=== PATIENT | female | born 1960 | race Caucasian/White ===

== ENCOUNTER 2021-07-05 11:39 | Inpatient (IN) | payer OTHER ==
[~2021-07-05] VITALS: Ht 165.1 cm; Wt 111.8 kg
--- NOTE | ~2021-07-05 | EMS ---
[facility] [address] [place] [place] [address] EMS Patient Care Report Name: PRABHAKAR SOTELO Room: [place] [address] ADM IN .#: [id number] Admission: 07/05/21 Attend Phys: Lux Leahy Discharge: Date of : 58 Report #: [id number] THIS REPORT FOR: //name// Report Transmitted: 07/05/2021 11:45 EMS Care Summary RONI RIDER Incident [id number] @ 07/05/2021 11:08 Incident Location [facility] [place] [address] Patient PRABHAKAR SOTELO Female, 61 Years 1960 Patient Address [address] [place] [address] Patient History Chronic Obstructive Pulmonary Disease (COPD),Hypertension (HTN), Patient Allergies No known allergies, Patient Medications Atorvastatin, Amlodipine, Potassium Chloride / Sodium Chloride, Chief Complaint Shortness of Breath Disposition Transported No Lights/[place] Reason Breathing Problem Transported To [facility] Narrative 61 Y O F C/O SHORTNESS OF BREATH AND A COUGH THAT STARTED ON SUNDAY AND WAS COUGHING UP GREEN STUFF. DOCTOR AT CLINIC STATED SHE IS COVID POSITIVE, WHEN SHE CAME IN SHE WAS SATTING AT 82 AND THEY GAVE HER AN A AND A TREATMENT AND IT GOT IT UP TO 88. PT STATED SHE DID NOT FEEL IF IT HELPED OR NOT. PT STATED SHE ALSO HAD A HEADACHE. PT DENIED PAIN TO HEAD, NECK, BACK, CHEST, ABD, PELVIS, [facility] [address] [place] [address] EMS Patient Care Report Name: PRABHAKAR SOTELO Room: [place] [address] ADM IN .R.#: [id number] Admission: 07/05/21 Attend Phys: Lux Leahy Discharge: Date of : 58 Report #: [id number] EXT AND LOSS OF CONSCIOUSNESS. PT FOUND SITTING IN CHAIR A AND O X4, ABCS IN TACT HEENT GCS 15, PUPILS JUANITA, NO JVD, IN LINE TRAC CHEST = RISE AND FALL, - ACC MUSCLE USE, WHEEZING LEFT ABD SOFT NON TENDER PELVIS IN TACT, - LOSS OF BLADDER/BOWEL EXT MCCOY, KATRIN, PULSE PRESENT, SKIN WARM, NORMAL COLOR AND MOISTURE TX: PRIMARY, SECONDARY, VITALS, PT STOOD AND SAT ON COT, 5 POINT HARNESS, COT TO UNIT, O2 3LPM NC, IV SALINE LOCK 20G L AC, D STICK, EKG, PT TRANSPORTED TO [facility], REPORT AND CARE CONTINUED EN ROUTE, UPON ARRIVAL CARE TURNED OVER TO STAFF IN ER 13. Initial Vitals @11:19SpO2: 89, @11:21SpO2: 89, @11:28SpO2: 95, @11:36SpO2: 94, @11:18 @11:23 @11:28 @11:33 @11:20Temp: 100.94F, @11:21P: 118,R: 16,BP: 145/83, @11:36P: 115,R: 16,BP: 143/61, @11:21GCS: 15, @11:36GCS: 15, @11:25Glucose: 170, Assessments @11:13MENTAL:SKIN:HEENT:LUNG SOUNDS:ABDOMEN:PELVIS//GI:EXTREMITIES:PULSE:NEURO: Impression COVID-19 - Confirmed by testing Procedures @11:22 Oxygen Complications: , Response: Improved @11:24 IV Therapy - cc () Site: Antecubital-Left Response: UnchangedSucceeded @11:18 3-Lead ECG Response: UnchangedSucceeded @11:23 3-Lead ECG Response: UnchangedSucceeded @11:28 3-Lead ECG Response: UnchangedSucceeded @11:33 3-Lead ECG Response: UnchangedSucceeded Timeline 10:00,Call Received 11:06,Dispatch Notified 11:06,Psap Call 11:08,[place] [address] EMS Patient Care Report Name: PRABHAKAR SOTELO Room: [address] IN [facility]#: [id number] Admission: 07/05/21 Attend Phys: Lux Leahy Discharge: Date of : 58 Report #: [id number] 11:08,En Route 11:11,On Scene 11:13,At Patient 11:18,3-Lead ECG,Response: UnchangedSucceeded, 11:18,BP: / M,PULSE: ,RR: R,SPO2: Ox,ETCO2: ,BG: ,PAIN: ,GCS: , 11:19,BP: / M,PULSE: ,RR: R,SPO2: 89 Ox,ETCO2: ,BG: ,PAIN: ,GCS: , 11:20,BP: / M,PULSE: ,RR: R,SPO2: Ox,ETCO2: ,BG: ,PAIN: ,GCS: , 11:21,BP: / M,PULSE: ,RR: R,SPO2: 89 Ox,ETCO2: ,BG: ,PAIN: ,GCS: , 11:21,BP: 145/83 M,PULSE: 118,RR: 16 R,SPO2: Ox,ETCO2: ,BG: ,PAIN: ,GCS: , 11:21,BP: / M,PULSE: ,RR: R,SPO2: Ox,ETCO2: ,BG: ,PAIN: ,GCS: 15, 11:22,Oxygen Complications: ,,Response: Improved 11:23,3-Lead ECG,Response: UnchangedSucceeded, 11:23,BP: / M,PULSE: ,RR: R,SPO2: Ox,ETCO2: ,BG: ,PAIN: ,GCS: , 11:24,IV Therapy - cc Site: Antecubital-Left,Response: UnchangedSucceeded, 11:25,BP: / M,PULSE: ,RR: R,SPO2: Ox,ETCO2: ,B,PAIN: ,GCS: , 11:27,Depart Scene 11:28,3-Lead ECG,Response: UnchangedSucceeded, 11:28,BP: / M,PULSE: ,RR: R,SPO2: 95 Ox,ETCO2: ,BG: ,PAIN: ,GCS: , 11:28,BP: / M,PULSE: ,RR: R,SPO2: Ox,ETCO2: ,BG: ,PAIN: ,GCS: , 11:33,3-Lead ECG,Response: UnchangedSucceeded, 11:33,BP: / M,PULSE: ,RR: R,SPO2: Ox,ETCO2: ,BG: ,PAIN: ,GCS: , 11:36,BP: / M,PULSE: ,RR: R,SPO2: 94 Ox,ETCO2: ,BG: ,PAIN: ,GCS: , 11:36,BP: 143/61 M,PULSE: 115,RR: 16 R,SPO2: Ox,ETCO2: ,BG: ,PAIN: ,GCS: , 11:36,BP: / M,PULSE: ,RR: R,SPO2: Ox,ETCO2: ,BG: ,PAIN: ,GCS: 15, 11:36,At Destination 11:52,Call Closed Disclaimer v1.1 Copyright 2020 [employer] This EMS Care Summary contains data elements from the applicable legal record (which may be displayed differently). It is designed to provide pertinent information for the following purposes: continuity of care, clinical quality, and state data reporting. The complete legal record is available to ED staff and administrators of the receiving hospital in [employer]'s Patient Tracker. All data is provided "as is."
[2021-07-05 11:51] VITALS: BP 135/86
[2021-07-05] MEDS ORDERED: LIPITOR 20 MG T20 M1 PO (11:55)
[2021-07-05] MEDS ORDERED: BREO ELLIPTA 11 EACH INH (11:55)
[2021-07-05] MEDS ORDERED: MICARDIS40 MG PO (11:55)
[2021-07-05] MEDS ORDERED: NORVASC10 MG PO (11:55)
[2021-07-05] MEDS ORDERED: CALCIUM500 MG PO (11:56)
[2021-07-05 12:30] LABS: BE 6.7 mmol/L (-2 to +3); PCO2 41.1 mmHg (35.0-45.0); pH 7.491 (7.340-7.450)
[2021-07-05 12:43] LABS: ABSOLUTE BASOPHILS 0.1 thou/uL (0.0-0.2); ABSOLUTE LYMPHOCYTES 1.6 thou/uL (0.8-5.3); ABSOLUTE MONOCYTES 1.7 thou/uL (0.0-1.2); ABSOLUTE NEUTROPHILS 11.6 thou/uL (1.6-8.1); BASOPHILS 0.5 %; EOSINOPHILS 0.2 %; HEMATOCRIT 43.6 % (37.0-47.0); HEMOGLOBIN 14.6 gm/dL (12.0-15.0); LYMPHOCYTES 10.4 %; MCH 28.9 pg (26.0-34.0); MCHC 33.5 g/dL (28.0-37.0); MCV 86.4 fL (80.0-100.0); MONOCYTES 11.4 %; NUCLEATED RBCS 0 /100WBC; PLATELET COUNT* 320 thou/uL (150-400); POLYS 77.5 %; RBC 5.05 mil/uL (4.20-5.00); WBC 14.9 thou/uL (4.0-11.0)
[2021-07-05 13:01] LABS: CREATININE 0.7 mg/dL (0.6-1.3)
[2021-07-05 13:04] LABS: POTASSIUM 2.8 mmol/L (3.5-5.1)
[2021-07-05 13:06] LABS: ALBUMIN 3.2 g/dL (3.4-5.0); TOTAL BILIRUBIN 1.3 mg/dL (<0.1-1.0); TOTAL PROTEIN 7.6 g/dL (6.4-8.2)
[2021-07-05 14:27] VITALS: BP 153/72
[2021-07-05 14:30] VITALS: BP 140/70
[2021-07-05 19:50] VITALS: BP 150/75
[2021-07-05 23:10] LABS: MAGNESIUM 2.1 mg/dL (1.8-2.4)
[2021-07-06 00:31] VITALS: BP 132/61
[2021-07-06 04:00] VITALS: BP 115/63
[2021-07-06 12:00] VITALS: BP 131/63
[2021-07-06 12:35] LABS: CREATININE 0.7 mg/dL (0.6-1.3); POTASSIUM 3.7 mmol/L (3.5-5.1)
[2021-07-06 14:06] LABS: APTT 35.7 Seconds (25.0-31.3); PROTIME 10.7 Seconds (9.20-11.50)
[2021-07-06 16:00] VITALS: BP 131/109
[2021-07-06 16:05] VITALS: BP 141/75
[2021-07-06 20:59] VITALS: BP 140/70
[2021-07-06 21:23] LABS: INFLUENZA A ANTIGEN Negative (Negative); INFLUENZA B ANTIGEN Negative (Negative)
[2021-07-07 00:49] VITALS: BP 157/78
[2021-07-07 04:17] VITALS: BP 137/80
[2021-07-07 04:18] LABS: HEMATOCRIT 40.6 % (37.0-47.0); HEMOGLOBIN 13.4 gm/dL (12.0-15.0); MCH 28.7 pg (26.0-34.0); MPV 9.1 fl. (7.2-11.1); NUCLEATED RBCS 0 /100WBC; PLATELET COUNT* 354 thou/uL (150-400); RBC 4.67 mil/uL (4.20-5.00)
[2021-07-07 04:52] LABS: ALBUMIN 2.8 g/dL (3.4-5.0); CALCIUM 8.7 mg/dL (8.5-10.1); CREATININE 0.8 mg/dL (0.6-1.3); MAGNESIUM 2.4 mg/dL (1.8-2.4); TOTAL BILIRUBIN 0.3 mg/dL (<0.1-1.0)
[2021-07-07 04:54] LABS: POTASSIUM 5.2 mmol/L (3.5-5.1)
[2021-07-07 06:01] LABS: ABSOLUTE EOSINOPHILS 0.2 thou/uL (0.0-0.7); ABSOLUTE LYMPHOCYTES 0.8 thou/uL (0.8-5.3); ABSOLUTE MONOCYTES 0.3 thou/uL (0.0-1.2); ABSOLUTE NEUTROPHILS 14.7 thou/uL (1.6-8.1); PLATELET ESTIMATE ADEQUATE
[2021-07-07 08:00] VITALS: BP 116/63
--- NOTE | 2021-07-07 08:03 | EKG ---
[place] [address] ELECTROCARDIOGRAM REPORT Name: PRABHAKAR SOTELO Room: [address] ADM [place] .R.#: [id number] Admission: 07/05/21 Attend Phys: Jordi Elkins Discharge: Date of : 58 Date of Service: 07/05/21 1157 Report #: [id number] THIS REPORT FOR: //name// [facility] ED Test Date: 2021-07-05 Test Time: 11:57:41 Pat Name: PRABHAKAR SOTELO Department: Room: [facility] Gender: F Geological Engineer: KARLA : 1960 Requested By: Fernandez Arroyo Order Number: [id number] MD: Lan Stephen Measurements Intervals [place] Rate: 114 P: 69 NE: 45 QRS: 8 QRSD: 96 T: 32 QT: 322 QTc: 444 Interpretive Statements Sinus tachycardia Abnormal R-wave progression, late transition Minimal ST depression, lateral leads No previous ECG available for comparison Electronically Signed On 07-07-2021 8:03:11 CDT by Lan Stephen [email or web address] <ELECTRONICALLY SIGNED> By: Lan Stephen MD, FACC 07/07/21 0803 1157 1157 Lan Stephen MD, FAC /EPI
[2021-07-07 12:14] VITALS: BP 137/64
[2021-07-07 15:58] VITALS: BP 136/61
[2021-07-07 20:00] VITALS: BP 144/79
--- NOTE | 2021-07-07 20:00 | CON ---
[address] [address] CONSULTATION Name: PRABHAKAR SOTELO Room: [address] IN M.R.#: [id number] Admission: 07/05/21 Attend Phys: Lux Leahy Discharge: Date of : 58 Report #: [id number] THIS REPORT FOR: cc: Genet Clements Sarah Anne FNP Pervez, Adeel MD ~ DATE OF CONSULTATION: 07/06/2021 Consult has been requested by Dr. Elkins. INDICATION FOR CONSULTATION: Possible COVID-19. HISTORY OF PRESENT ILLNESS: This is a 61-year-old female. She is a lifetime nonsmoker. She previously has been vaccinated with 2 doses of Pfizer COVID-19 vaccine. The patient has now presented with an acute respiratory illness. She has been having an increase in cough for the last 2 weeks. She has also been bringing up some green sputum and has had increasing shortness of breath as well. She did not describe upper respiratory complaints. There is no increase in swelling of lower extremities or calf pain. The patient reports that she was tested for COVID-19 as an outpatient and the test results were positive. The patient was noted to be hypoxemic at 87% on room air on initial presentation. Currently, she is on 4 liters nasal cannula and she is saturating 92%. REVIEW OF SYSTEMS: Twelve points is negative except as mentioned above. PAST MEDICAL HISTORY: Hyperlipidemia, bronchial asthma, hypertension, obesity with a body mass index of 39.7. CURRENT MEDICATIONS: List in [facility] reviewed. HOME MEDICATIONS: List also in [facility] reviewed. ALLERGIES: No known drug allergies. FAMILY HISTORY: No pertinent family history. IMMUNIZATION HISTORY: She reports having taken 2 doses of Pfizer COVID-19 vaccine. PHYSICAL EXAMINATION: GENERAL: She is alert, awake and oriented, does not appear to be in any distress at this time. VITAL SIGNS: Has a pulse of 106 and a blood pressure of 131/63. She is saturating 92%. She is on 4 liters nasal cannula. Respiratory rate is 17. She is afebrile with a [place] 36.9. [place] [address] CONSULTATION Name: PRABHAKAR SOTELO Room: [address]#: [id number] Admission: 07/05/21 Attend Phys: Lux Leahy Discharge: Date of : 58 Report #: [id number] HEENT: Head is normocephalic and atraumatic. Pupils are equal and reactive. NECK: Does not show raised JVP. CHEST: Breath sounds are bilaterally equal, decreased. No added sounds. HEART: Regular. There is no murmur. ABDOMEN: Soft and nontender. LOWER EXTREMITIES: Trace edema, no calf tenderness. SKIN: Dry and intact. LABORATORY DATA: The patient's chest x-ray performed yesterday as well as today are reviewed. There are mild increase in reticular markings, otherwise unremarkable. There is raised hemidiaphragm on the right side. Lab work in [facility] reviewed. COVID-19 PCR as well as antigen were negative. Arterial blood gas in [facility] reviewed, consistent with acute hypoxemic respiratory failure. ASSESSMENT AND PLAN: 1. Acute hypoxemic respiratory failure. Her history is consistent with viral infection. She has tested negative for both COVID-19 antigen as well as PCR and has had the vaccine, but she did test positive once for COVID-19 previously. Therefore, COVID-19 still is not fully ruled out at this time, certainly could be another viral infection and can also be an atypical infection. 2. COVID-19. See discussion regarding her testing as above. For now, I favor still treating her as having COVID-19 and I therefore recommended still keeping her in isolation. She is on dexamethasone to be started this evening. I went ahead and gave her one dose of Solu-Medrol now as well. If she continues to do well, then I will cut back on dexamethasone dose tomorrow. Recommend continuing with remdesivir. We will hold off on convalescent plasma and Actemra. Meanwhile, I will go ahead and also test for other viruses. We will go ahead and do an influenza swab and if this is negative, then we will send off a viral respiratory panel. I will go ahead and add atypical coverage to her antibiotics as well. We will also do serologies for atypicals. 3. Asthma exacerbation. She is on steroid as above, also on DuoNeb. 4. Obesity/probable underlying obstructive sleep apnea. We will have a low threshold of using BiPAP in case her oxygen needs increase. 5. Evaluation for thromboembolic phenomena. I intended to do a CT chest, both to evaluate the infiltrates as well as to evaluate for thromboembolism if indicated. We will also do a D-dimer and then decide as to whether we will do the CT with or without dye. 6. Deep venous thrombosis prophylaxis, currently on intermediate dose of Lovenox. For now, I will continue the same. 7. Clostridium difficile prophylaxis. We will order Lactinex. 8. Gastrointestinal prophylaxis, Pepcid. 9. Mild hyperglycemia, insulin sliding scale. [place] [address] [place] [address] CONSULTATION Name: PRABHAKAR SOTELO Room: [address]#: [id number] Admission: 07/05/21 Attend Phys: Lux Leahy Discharge: Date of : 58 Report #: [id number] Thanks for this consultation. <ELECTRONICALLY SIGNED> By: Orlin Palencia MD 07/07/211999 1220 1343Aiban Palencia MD /nt
[2021-07-07 22:06] LABS: MYCOPLASMA PNEUMONIA IgG 171 U/mL (0-99); MYCOPLASMA PNEUMONIA IgM <770 U/mL (0-769)
[2021-07-08] VITALS: BP 125/68
[2021-07-08 04:00] VITALS: BP 131/71
[2021-07-08 05:19] LABS: ABSOLUTE LYMPHOCYTES 1.1 thou/uL (0.8-5.3); ABSOLUTE MONOCYTES 0.7 thou/uL (0.0-1.2); ABSOLUTE NEUTROPHILS 12.1 thou/uL (1.6-8.1); BASOPHILS 0.1 %; HEMATOCRIT 39.3 % (37.0-47.0); HEMOGLOBIN 12.8 gm/dL (12.0-15.0); LYMPHOCYTES 7.8 %; MCH 28.4 pg (26.0-34.0); MCHC 32.7 g/dL (28.0-37.0); MCV 86.9 fL (80.0-100.0); MPV 8.7 fl. (7.2-11.1); NUCLEATED RBCS 0 /100WBC; PLATELET COUNT* 333 thou/uL (150-400); POLYS 87.1 %; RBC 4.52 mil/uL (4.20-5.00); RDW-CV 14.3 % (10.5-14.5); WBC 13.9 thou/uL (4.0-11.0)
[2021-07-08 05:38] LABS: ALBUMIN 2.6 g/dL (3.4-5.0); CALCIUM 8.7 mg/dL (8.5-10.1); CREATININE 0.7 mg/dL (0.6-1.3); MAGNESIUM 2.6 mg/dL (1.8-2.4); POTASSIUM 4.4 mmol/L (3.5-5.1); TOTAL BILIRUBIN 0.3 mg/dL (<0.1-1.0); TOTAL PROTEIN 6.1 g/dL (6.4-8.2)
[2021-07-08 08:00] VITALS: BP 134/74
[2021-07-08 11:30] VITALS: BP 163/67
[2021-07-08 16:00] VITALS: BP 115/70
[2021-07-08 20:00] VITALS: BP 138/72
[2021-07-09 00:51] VITALS: BP 129/54
[2021-07-09 04:00] VITALS: BP 116/54
[2021-07-09 06:30] LABS: ABSOLUTE LYMPHOCYTES 1.4 thou/uL (0.8-5.3); ABSOLUTE MONOCYTES 1.1 thou/uL (0.0-1.2); ABSOLUTE NEUTROPHILS 12.4 thou/uL (1.6-8.1); BASOPHILS 0.3 %; EOSINOPHILS 0.1 %; HEMATOCRIT 40.7 % (37.0-47.0); HEMOGLOBIN 13.4 gm/dL (12.0-15.0); LYMPHOCYTES 9.6 %; MCH 28.9 pg (26.0-34.0); MCHC 32.9 g/dL (28.0-37.0); MCV 87.9 fL (80.0-100.0); MONOCYTES 7.2 %; MPV 8.9 fl. (7.2-11.1); NUCLEATED RBCS 0 /100WBC; PLATELET COUNT* 347 thou/uL (150-400); POLYS 82.8 %; RBC 4.62 mil/uL (4.20-5.00); RDW-CV 14.3 % (10.5-14.5)
[2021-07-09 08:00] VITALS: BP 154/87
[2021-07-09 09:39] LABS: ALBUMIN 2.7 g/dL (3.4-5.0); CALCIUM 8.4 mg/dL (8.5-10.1); CREATININE 0.7 mg/dL (0.6-1.3); MAGNESIUM 2.5 mg/dL (1.8-2.4); POTASSIUM 4.7 mmol/L (3.5-5.1); TOTAL BILIRUBIN 0.4 mg/dL (<0.1-1.0); TOTAL PROTEIN 5.4 g/dL (6.4-8.2)
[2021-07-09 12:41] VITALS: BP 172/72
[2021-07-09 17:20] VITALS: BP 137/64
[2021-07-09 20:00] VITALS: BP 143/69
[2021-07-09 20:19] LABS: HEMATOCRIT 38.1 % (37.0-47.0); HEMOGLOBIN 12.8 gm/dL (12.0-15.0)
[2021-07-10 00:31] VITALS: BP 127/73; BP 140/75
[2021-07-10 04:45] LABS: CALCIUM 8.1 mg/dL (8.5-10.1); CREATININE 0.8 mg/dL (0.6-1.3); HEMATOCRIT 33.5 % (37.0-47.0); HEMOGLOBIN 10.9 gm/dL (12.0-15.0); MAGNESIUM 2.5 mg/dL (1.8-2.4); MCHC 32.6 g/dL (28.0-37.0); MPV 8.6 fl. (7.2-11.1); NUCLEATED RBCS 0 /100WBC; PHOSPHORUS* 4.8 mg/dL (2.5-4.9); POTASSIUM 4.3 mmol/L (3.5-5.1); RBC 3.89 mil/uL (4.20-5.00); WBC 24.8 thou/uL (4.0-11.0)
[2021-07-10 04:48] LABS: PLATELET COUNT* 454 thou/uL (150-400)
[2021-07-10 04:52] VITALS: BP 112/68
[2021-07-10 07:14] LABS: ABSOLUTE LYMPHOCYTES 2.5 thou/uL (0.8-5.3); ABSOLUTE MONOCYTES 2.7 thou/uL (0.0-1.2); ABSOLUTE NEUTROPHILS 19.6 thou/uL (1.6-8.1); PLATELET ESTIMATE INCREASED
[2021-07-10 08:10] VITALS: BP 141/84
[2021-07-10 12:26] VITALS: BP 112/45
[2021-07-10 16:13] VITALS: BP 147/76
[2021-07-10 20:00] VITALS: BP 121/72
[2021-07-10 20:07] LABS: HEMATOCRIT 30.2 % (37.0-47.0); HEMOGLOBIN 10.1 gm/dL (12.0-15.0)
[2021-07-11] VITALS: BP 131/66
[2021-07-11 04:00] VITALS: BP 131/71
[2021-07-11 04:45] LABS: ALBUMIN 2.5 g/dL (3.4-5.0); CALCIUM 8.1 mg/dL (8.5-10.1); CREATININE 0.7 mg/dL (0.6-1.3); MAGNESIUM 2.6 mg/dL (1.8-2.4); PHOSPHORUS* 3.8 mg/dL (2.5-4.9); POTASSIUM 3.7 mmol/L (3.5-5.1); TOTAL BILIRUBIN 0.6 mg/dL (<0.1-1.0); TOTAL PROTEIN 5.4 g/dL (6.4-8.2)
[2021-07-11 04:46] LABS: ABSOLUTE LYMPHOCYTES 3.2 thou/uL (0.8-5.3); ABSOLUTE MONOCYTES 3.2 thou/uL (0.0-1.2); ABSOLUTE NEUTROPHILS 28.7 thou/uL (1.6-8.1); BASOPHILS 0.1 %; HEMATOCRIT 27.9 % (37.0-47.0); HEMOGLOBIN 9.4 gm/dL (12.0-15.0); LYMPHOCYTES 9.2 %; MCH 28.5 pg (26.0-34.0); MCHC 33.6 g/dL (28.0-37.0); MCV 84.7 fL (80.0-100.0); MONOCYTES 9.2 %; MPV 8.4 fl. (7.2-11.1); NUCLEATED RBCS 0 /100WBC; PLATELET COUNT* 396 thou/uL (150-400); POLYS 81.5 %; RDW-CV 13.9 % (10.5-14.5); WBC 35.2 thou/uL (4.0-11.0)
[2021-07-11 08:00] VITALS: BP 145/68
[2021-07-11 12:00] VITALS: BP 131/75
[2021-07-11 16:30] VITALS: BP 119/35
[2021-07-11 19:39] LABS: HEMATOCRIT 26.4 % (37.0-47.0); HEMOGLOBIN 8.9 gm/dL (12.0-15.0)
[2021-07-11 20:00] VITALS: BP 159/80
[2021-07-12] VITALS (7 sets, daily range): BP systolic 132–165; BP diastolic 61–78
[2021-07-12 04:52] LABS: ABSOLUTE LYMPHOCYTES 2.2 thou/uL (0.8-5.3); ABSOLUTE MONOCYTES 2.4 thou/uL (0.0-1.2); ABSOLUTE NEUTROPHILS 27.6 thou/uL (1.6-8.1); BASOPHILS 0.1 %; HEMATOCRIT 24.5 % (37.0-47.0); HEMOGLOBIN 8.3 gm/dL (12.0-15.0); LYMPHOCYTES 6.7 %; MCH 28.8 pg (26.0-34.0); MCHC 33.8 g/dL (28.0-37.0); MCV 85.3 fL (80.0-100.0); MONOCYTES 7.5 %; MPV 8.2 fl. (7.2-11.1); NUCLEATED RBCS 0 /100WBC; POLYS 85.7 %; RBC 2.88 mil/uL (4.20-5.00); RDW-CV 14.2 % (10.5-14.5); WBC 32.2 thou/uL (4.0-11.0)
[2021-07-12 05:14] LABS: PLATELET COUNT* 313 thou/uL (150-400)
[2021-07-12 05:15] LABS: ALBUMIN 2.2 g/dL (3.4-5.0); CALCIUM 8.1 mg/dL (8.5-10.1); CREATININE 0.6 mg/dL (0.6-1.3); POTASSIUM 3.9 mmol/L (3.5-5.1); TOTAL BILIRUBIN 0.8 mg/dL (<0.1-1.0); TOTAL PROTEIN 5.2 g/dL (6.4-8.2)
[2021-07-12 19:19] LABS: URINE BILIRUBIN NEGATIVE (Negative); URINE BLOOD NEGATIVE (Negative); URINE CLARITY CLEAR; URINE COLOR YELLOW; URINE GLUCOSE-RANDOM NEGATIVE (Negative); URINE KETONES NEGATIVE (Negative); URINE LEUKOCYTES-REFLEX NEGATIVE (Negative); URINE NITRITE-REFLEX NEGATIVE (Negative); URINE PROTEIN NEGATIVE (Negative); URINE UROBILINOGEN 0.2 E.U./dl (0.2-1.0)
[2021-07-13 00:12] VITALS: BP 147/76
[2021-07-13 04:00] VITALS: BP 125/54
[2021-07-13 04:41] LABS: HEMATOCRIT 23.4 % (37.0-47.0); HEMOGLOBIN 7.8 gm/dL (12.0-15.0); MCH 28.9 pg (26.0-34.0); MCHC 33.1 g/dL (28.0-37.0); MCV 87.2 fL (80.0-100.0); MPV 8.7 fl. (7.2-11.1); NUCLEATED RBCS 0 /100WBC; PLATELET COUNT* 304 thou/uL (150-400); RBC 2.69 mil/uL (4.20-5.00); RDW-CV 14.5 % (10.5-14.5); WBC 23.5 thou/uL (4.0-11.0)
[2021-07-13 05:18] LABS: ALBUMIN 2.1 g/dL (3.4-5.0); CALCIUM 7.9 mg/dL (8.5-10.1); CREATININE 0.6 mg/dL (0.6-1.3); MAGNESIUM 2.4 mg/dL (1.8-2.4); POTASSIUM 3.6 mmol/L (3.5-5.1); TOTAL BILIRUBIN 0.9 mg/dL (<0.1-1.0); TOTAL PROTEIN 5.1 g/dL (6.4-8.2)
[2021-07-13 07:43] LABS: ABSOLUTE LYMPHOCYTES 2.6 thou/uL (0.8-5.3); ABSOLUTE MONOCYTES 1.4 thou/uL (0.0-1.2); ABSOLUTE NEUTROPHILS 19.5 thou/uL (1.6-8.1)
[2021-07-13 07:44] LABS: PLATELET ESTIMATE ADEQUATE
[2021-07-13 07:45] LABS: HYPOCHROMASIA 1+
[2021-07-13 08:45] VITALS: BP 130/74
[2021-07-13 11:30] VITALS: BP 132/62
[2021-07-13 16:00] VITALS: BP 162/78
[2021-07-13 22:00] VITALS: BP 140/75
[2021-07-14] VITALS: BP 154/73
[2021-07-14 04:00] VITALS: BP 150/82
[2021-07-14 04:55] LABS: ABSOLUTE MONOCYTES 1.9 thou/uL (0.0-1.2); ABSOLUTE NEUTROPHILS 17.6 thou/uL (1.6-8.1); BASOPHILS 0.2 %; EOSINOPHILS 0.1 %; HEMATOCRIT 23.4 % (37.0-47.0); HEMOGLOBIN 7.7 gm/dL (12.0-15.0); LYMPHOCYTES 9.4 %; MCH 28.9 pg (26.0-34.0); MCV 87.6 fL (80.0-100.0); MONOCYTES 8.8 %; MPV 8.5 fl. (7.2-11.1); NUCLEATED RBCS 0 /100WBC; PLATELET COUNT* 339 thou/uL (150-400); POLYS 81.5 %; RBC 2.67 mil/uL (4.20-5.00); RDW-CV 14.8 % (10.5-14.5); WBC 21.5 thou/uL (4.0-11.0)
[2021-07-14 05:13] LABS: CALCIUM 7.9 mg/dL (8.5-10.1); CREATININE 0.6 mg/dL (0.6-1.3); POTASSIUM 3.3 mmol/L (3.5-5.1)
[2021-07-14 09:25] VITALS: BP 164/85
[2021-07-14 11:43] VITALS: BP 155/65
[2021-07-14] MEDS ORDERED: DEXAMETHASONE1 MG PO (12:06)
[2021-07-14] MEDS ORDERED: PROTONIX40 M4 PO (12:06)
[2021-07-14] MEDS ORDERED: DOXYCYCLINE 10100 MG PO (12:06)
[2021-07-14 12:16] VITALS: BP 155/65
== END 2021-07-14 13:25 | disposition home health service (06) | DRG 177 ==
LOC: M.ERS 11:39 → M.TBA-ER 12:07 → M.ORTHSURG 12:07
PROVIDERS: Family Medicine; Internal Medicine; Internal Medicine Critical Care Medicine; Surgery; ADMIT Internal Medicine; ATTEND Internal Medicine
PROC: XW033E5 Introduction of Remdesivir Anti-infective into Peripheral Vein, Percutaneous Approach, New Technology Group 5 (ICD-10-PCS; 2021-07-05)
PROC: 5A09357 Assistance with Respiratory Ventilation, Less than 24 Consecutive Hours, Continuous Positive Airway Pressure (ICD-10-PCS; principal; 2021-07-07)
PROC: 5A09357 Assistance with Respiratory Ventilation, Less than 24 Consecutive Hours, Continuous Positive Airway Pressure (ICD-10-PCS; 2021-07-08)
PROC: 5A09357 Assistance with Respiratory Ventilation, Less than 24 Consecutive Hours, Continuous Positive Airway Pressure (ICD-10-PCS; 2021-07-09)
PROC: 5A09357 Assistance with Respiratory Ventilation, Less than 24 Consecutive Hours, Continuous Positive Airway Pressure (ICD-10-PCS; 2021-07-10)
PROC: 5A09357 Assistance with Respiratory Ventilation, Less than 24 Consecutive Hours, Continuous Positive Airway Pressure (ICD-10-PCS; 2021-07-11)
PROC: 5A09357 Assistance with Respiratory Ventilation, Less than 24 Consecutive Hours, Continuous Positive Airway Pressure (ICD-10-PCS; 2021-07-12)
DX: U07.1 COVID-19 (principal); J96.01 Acute respiratory failure with hypoxia; J12.82 Pneumonia due to coronavirus disease 2019; R65.11 Systemic inflammatory response syndrome (SIRS) of non-infectious origin with acute organ dysfunction; D62 Acute posthemorrhagic anemia; Z68.41 Body mass index [BMI] 40.0-44.9, adult; E46 Unspecified protein-calorie malnutrition; E87.1 Hypo-osmolality and hyponatremia; G47.33 Obstructive sleep apnea (adult) (pediatric); I10 Essential (primary) hypertension; E66.9 Obesity, unspecified; M79.81 Nontraumatic hematoma of soft tissue; J45.909 Unspecified asthma, uncomplicated; E80.6 Other disorders of bilirubin metabolism; K21.9 Gastro-esophageal reflux disease without esophagitis; E87.8 Other disorders of electrolyte and fluid balance, not elsewhere classified; E87.6 Hypokalemia; R73.9 Hyperglycemia, unspecified; E78.2 Mixed hyperlipidemia; Z79.899 Other long term (current) drug therapy; Z85.3 Personal history of malignant neoplasm of breast